=== PATIENT | female | born 2000 | race Caucasian/White ===

== ENCOUNTER → 2019-04-12 16:53 | Outpatient (CLI) | payer OTHER, SELFPAY ==
[2019-04-12 17:53] LABS: Add Manual Diff / Slide Review NO; Basophils Absolute Auto 0 /uL (0-100); Basophils Percent Auto 0.5 % (0-2); Eosinophils Absolute Auto 200 /uL (0-450); Eosinophils Percent Auto 3.2 % (2-4); Hematocrit 39.4 % (36-46); Hemoglobin 13.5 g/dL (12.0-16.0); Lymphocytes Absolute Auto 2400 /uL (1100-4500); Lymphocytes Percent Auto 39.3 % (25-40); Mean Corpuscular HGB Conc 34.2 % (30-36); Mean Corpuscular Hemoglobin 28.6 PG (26-34); Mean Corpuscular Volume 83.8 fL (80-100); Monocytes Absolute Auto 400 /uL (0-900); Monocytes Percent Auto 6.7 % (3-14); Neutrophils Absolute Auto 3100 /uL (1500-7000); Neutrophils Percent Auto 50.3 % (50-75); Platelet Count 300 X10^3/uL (150-400); Red Blood Cell Count 4.71 X10^6/uL (4.0-5.2); Red Cell Distribution Width 13.1 % (11.6-14.8); White Blood Cell Count 6.1 X10^3/uL (4.5-11.0)
[2019-04-12 18:17] LABS: Free T3, Triiodothyronine Free 4.16 pg/mL (2.77-5.27)
[2019-04-12 18:30] LABS: Thyroid Stimulating Hormone 1.25 uIU/mL (0.47-4.68)
== END ==
PROVIDERS: Family Provider Family Medicine; PCP Family Medicine; Visit Provider Family Medicine
DX: F41.9 Anxiety disorder, unspecified (principal); N92.0 Excessive and frequent menstruation with regular cycle
CPT/HCPCS: 36415; 84439; 84443; 84481; 85025

== ENCOUNTER → 2019-08-21 11:10 | Outpatient (CLI) | payer OTHER, SELFPAY | PROVIDERS: Family Provider Family Medicine; PCP Family Medicine; Visit Provider Physician Assistant | DX: N89.8 Other specified noninflammatory disorders of vagina (principal) | CPT/HCPCS: 87210 ==

== ENCOUNTER 2020-03-02 04:57 | Observation (INO) | payer OTHER, SELFPAY ==
[2020-03-02] VITALS (24 sets, daily range): BP systolic 77–128; BP diastolic 37–78; PULSE 97–123; RESP 13–20; TEMP 36.1–37.2; O2SAT 87–100; BMI 23.3
--- NOTE | 2020-03-02 | PATH_ITS ---
[facility] Accession Number: [id number] . 01 Material submitted: . appendix - APPENDIX . 01 Clinical history: . FEVER/ABD PAIN . 02 Diagnosis: Appendix, Appendectomy: Active periappendicitis. Negative for dysplasia and malignancy. [facility] 03/06/2020 1526 Local . 02 Electronically signed: . Yoana Horton MD, Pathologist NPI- [id number] . 01 Gross description: . Received in formalin, labeled appendix, and consists of a 5.2 cm in length by 0.6 cm in diameter vermiform appendix with minimal attached mesoappendix. The serosa is jacobson-pink and smooth. Sectioning reveals a jacobson mucosa and a lumen measuring 0.2 cm in diameter. No perforation sites are identified. The specimen is entirely submitted in cassettes A1-A4. ([id number]) /MRV 03/05/2020 1031 Local . 02 Pathologist provided ICD-10: K36 . 02 CPT . 008745 Performed at: 01 [facility] [address] [id number] MD Jean-Claude Pradhan MD Phone: [phone] Performed at: 02 [facility] [address] [place], [place] [id number] MD Yoana Horton MD Phone: [phone]
[2020-03-02 05:24] LABS: Add Manual Diff / Slide Review NO; Basophils Absolute Auto 100 /uL (0-100); Basophils Percent Auto 0.5 % (0-2); Eosinophils Absolute Auto 0 /uL (0-450); Eosinophils Percent Auto 0.1 % (2-4); Hematocrit 39.2 % (36-46); Hemoglobin 13.2 g/dL (12.0-16.0); Lymphocytes Absolute Auto 1700 /uL (1100-4500); Lymphocytes Percent Auto 8.9 % (25-40); Mean Corpuscular HGB Conc 33.7 % (30-36); Mean Corpuscular Hemoglobin 28.1 PG (26-34); Mean Corpuscular Volume 83.4 fL (80-100); Monocytes Absolute Auto 900 /uL (0-900); Monocytes Percent Auto 4.7 % (3-14); Neutrophils Absolute Auto 16500 /uL (1500-7000); Neutrophils Percent Auto 85.8 % (50-75); Platelet Count 370 X10^3/uL (150-400); Red Cell Distribution Width 13.4 % (11.6-14.8); White Blood Cell Count 19.2 X10^3/uL (4.5-11.0)
--- NOTE | 2020-03-02 05:29 | ED_ITS ---
HPI - Abdominal Pain <Freddy Wong MD - Last Filed: 03/02/20 18:06> General Chief Complaint: Abdominal Pain Stated Complaint: fever/abd pain Time Seen by Provider: 03/02/20 05:20 Source: patient and family Mode of arrival: Ambulatory Limitations: no limitations History of Present Illness HPI narrative: Patient here with . Complaints slow onset 1:00 a.m. this morning with infraumbilical abdominal pain that is radiating right lower quadrant. Does not radiate to the back. No urinary complaints. Much more painful with movement. Has subjective fever. Nausea but no vomiting. No diarrhea. LMP starting 2 days ago MD complaint: abdominal pain Related Data Previous Rx's Medication Instructions Recorded norethindrone acetate 1.5 1 tab PO QDAY #105 tab 08/25/18 mg-ethinyl estradiol 30 mcg tablet escitalopram oxalate 10 mg tablet 10 mg PO DAILY #90 tab 10/31/19 docusate sodium 100 mg PO BID #20 cap 03/02/20 oxycodone 5 mg PO Q4-6H PRN #30 tab 03/02/20 Allergies Allergy/AdvReac Type Severity Reaction Status Date / Time cat dander [CAT DANDER] Allergy Intermediate eyes Verified 03/02/20 10:03 luiz Review of Systems <Freddy Wong MD - Last Filed: 03/02/20 18:06> Review of Systems Narrative: GENERAL: Denies chills, fatigue, malaise, fever, sweats. HEENT: Denies sinus pain, ear pain, sore throat, difficulty swallowing, dizziness. RESPIRATORY: Denies dyspnea, cough, wheezing, hemoptysis, sputum. CARDIOVASCULAR: Denies chest pain, palpitations, orthopnea, edema, GASTROINTESTINAL: Complains nausea, denies vomiting, complains abdominal pain, denies diarrhea, constipation, melena. : Denies dysuria, frequency, incontinence, hematuria, urinary retention. MUSCULOSKELETAL: denies weakness, joint pain, or bony pain SKIN: Denies rash, skin lesions NEUROLOGIC: Denies weakness, headache, numbness, change in speech, confusion, seizures, incoordination. PSYCHIATRIC: No concerning psychosocial issues. ROS Unobtainable: All systems reviewed & are unremarkable except as noted in HPI and below Patient History <Freddy Wong MD - Last Filed: 03/02/20 18:06> Medical History (Updated 03/02/20 @ 13:41 by Meenakshi Gore DO) Anxiety (Acute) Bacterial vaginosis (Acute) Family history of alcoholism in father (Acute) Ruptured cyst of left ovary (Acute ~03/02/20) Surgical History (Updated 03/02/20 @ 13:41 by Meenakshi Gore DO) Status post appendectomy (Inactive ~03/02/20) Family History Brother Asthma Grandfather Chronic mental illness History of depression Diabetes mellitus Sister Asthma Social History household members: spouse Smoking Status: Never smoker Smoking Status: Never smoker alcohol intake frequency: a few times a month Substance Use Type: does not use Exam <Freddy Wong MD - Last Filed: 03/02/20 18:06> Narrative Exam Narrative: GENERAL: patient appears stated age. Well-nourished, well-deve loped patient, in no distress, not toxic HEAD: Atraumatic. Normocephalic. EYES: Pupils equal round and reactive. Extraocular motions intact. No scleral icterus. No injection or drainage. ENT: Nose without bleeding, purulent drainage. Throat without erythema, tonsillar hypertrophy or exudate. Airway patent. NECK: Trachea midline. Non tender CARDIOVASCULAR: Regular rate and rhythm without murmurs, gallops, or rubs. RESPIRATORY: Clear to auscultation. Breath sounds equal bilaterally. No wheezes, rales, or rhonchi. GASTROINTESTINAL: Abdomen soft, tender to touch right lower quadrant/McBurney point. Pain with movement, nondistended. EXTREMITIES: No edema or joint tenderness. BACK: Nontender without deformity or crepitance. No flank tenderness. NEURO: AOx4. SKIN: No rash or erythema of visible areas PSYCH: Not anxious, is cooperative Initial Vital Signs Initial Vital Signs: Vital Signs Temperature 98.8 F 03/02/20 05:20 Pulse Rate 111 H 03/02/20 05:20 Respiratory Rate 20 03/02/20 05:20 Blood Pressure 128/75 03/02/20 05:20 Pulse Oximetry 100 03/02/20 05:20 <Werner Sal DO - Last Filed: 03/02/20 13:31> Initial Vital Signs Initial Vital Signs: Vital Signs Temperature 98.8 F 03/02/20 05:20 Pulse Rate 111 H 03/02/20 05:20 Respiratory Rate 20 03/02/20 05:20 Blood Pressure 128/75 03/02/20 05:20 Pulse Oximetry 100 03/02/20 05:20 Course <Freddy Wong MD - Last Filed: 03/02/20 18:06> Course Course Narrative: 0700 s/o dr sal, await for final ct results and reassess for pain ..could be early appendicitis. Orders Ordered: ED Orders 03/02/20 09:21 COVID19 -ED/INPAT/OR/L&D Stat Discontinued Medications Bupivacaine HCl/Epinephrine Bitart (Sensorcaine 0.25% W/ Epi (Pf)) 30 ml INJ NOW ONE Stop: 03/02/20 10:53 Last Admin: 03/02/20 10:52 Dose: 30 ml Documented by: MARISEL Fentanyl (Sublimaze) 0 mcg IV Q5M PRN PRN Reason: Pain, Moderate (4-6) Hydromorphone HCl (Dilaudid) 0 mg IV Q5M PRN PRN Reason: Pain, Severe (7-10) Sodium Chloride (Normal Saline 0.9%) 1,000 mls @ 1,000 mls/hr IV BOLUS ONE Stop: 03/02/20 06:27 Last Infusion: 03/02/20 07:44 Dose: 0 mls/hr Documented by: Admin: 03/02/20 05:34 Dose: 1,000 mls/hr Documented by: ALEKSANDRA Piperacillin/Tazobactam/Dextrose (Zosyn) 3.375 gm in 50 mls @ 100 mls/hr IV NOW ONE Stop: 03/02/20 09:20 Last Infusion: 03/02/20 09:52 Dose: 0 mls/hr Documented by: Admin: 03/02/20 09:17 Dose: 100 mls/hr Documented by: ALTON Sodium Chloride (Normal Saline 0.9%) 1,000 mls @ 100 mls/hr IV CONT NATALI Lactated Ringer's (Lactated Ringers) 1,000 mls @ 42 mls/hr IV CONT NATALI Last Infusion: 03/02/20 12:44 Dose: 0 mls/hr Documented by: Admin: 03/02/20 11:49 Dose: 42 mls/hr Documented by: Infusion: 03/02/20 11:49 Dose: 42 mls/hr Documented by: Admin: 03/02/20 10:59 Dose: 42 mls/hr Documented by: Infusion: 03/02/20 10:59 Dose: 42 mls/hr Documented by: Admin: 03/02/20 10:16 Dose: 42 mls/hr Documented by: MARKUS Lactated Ringer's (Lactated Ringers) 1,000 mls @ 42 mls/hr IV CONT NATALI Lorazepam (Ativan) 0.5 mg IV NOW PRN PRN Reason: Anxiety Metoclopramide HCl (Reglan) 10 mg IV NOW PRN PRN Reason: Nausea And Vomiting Morphine Sulfate (Morphine) 4 mg IV NOW ONE Stop: 03/02/20 05:42 Last Admin: 03/02/20 05:46 Dose: 4 mg Documented by: ALEKSANDRA Morphine Sulfate (Morphine) 4 mg IV NOW ONE Stop: 03/02/20 08:49 Last Admin: 03/02/20 09:17 Dose: 4 mg Documented by: ALTON Morphine Sulfate (Morphine) 4 mg IV Q4HR PRN PRN Reason: Pain, Severe (7-10) Ondansetron HCl (Zofran) 4 mg IV NOW ONE Stop: 03/02/20 05:29 Last Admin: 03/02/20 05:34 Dose: 4 mg Documented by: ALEKSANDRA Ondansetron HCl (Zofran) 4 mg IV Q4HR PRN PRN Reason: Nausea And Vomiting Ondansetron HCl (Zofran) 4 mg IV NOW PRN PRN Reason: Nausea And Vomiting Oxycodone/Acetaminophen (Percocet 5/325) 1 tab PO PACUNOW PRN PRN Reason: Mild or Moderate Pain Consultations Consultation #1: Spoke with general surgeon dr segura, she reviewed the CT scan. Reviewed white cell count with her as well. At this time, no surgery no admission. Patient can be discharged home for appendicitis precautions and return if worsening. Time: 06:44 Vital Signs Vital signs: Vital Signs - 8 hr 03/02/20 05:36 03/02/20 06:06 03/02/20 06:12 Pulse Rate 113 H 105 H 111 H Blood Pressure 116/69 Pulse Oximetry 99 99 99 03/02/20 06:30 03/02/20 06:47 03/02/20 07:00 Pulse Rate 104 H 108 H 108 H Blood Pressure 104/66 118/76 111/73 Pulse Oximetry 99 100 100 03/02/20 07:30 03/02/20 08:00 03/02/20 08:30 Pulse Rate 106 H 105 H 107 H Blood Pressure Pulse Oximetry 100 97 97 03/02/20 09:00 03/02/20 09:18 03/02/20 09:30 Pulse Rate 107 H 112 H 107 H Blood Pressure 113/72 110/65 Pulse Oximetry 99 100 98 <Werner Sal, DO - Last Filed: 03/02/20 13:31> Course Course Narrative: patient received in signout from Dr. Wong. I have perfo rmed an independent history and physical and agree with his assessment. CT has been officially read by our radiologists and though imaging isn't very convincing her story and exam are classic for early appendicitis. Dr. Segura has seen patient at the bedside and will take to the OR for lap appy. Orders Ordered: ED Orders 03/02/20 09:21 COVID19 -ED/INPAT/OR/L&D Stat Discontinued Medications Bupivacaine HCl/Epinephrine Bitart (Sensorcaine 0.25% W/ Epi (Pf)) 30 ml INJ NOW ONE Stop: 03/02/20 10:53 Last Admin: 03/02/20 10:52 Dose: 30 ml Documented by: MARISEL Fentanyl (Sublimaze) 0 mcg IV Q5M PRN PRN Reason: Pain, Moderate (4-6) Hydromorphone HCl (Dilaudid) 0 mg IV Q5M PRN PRN Reason: Pain, Severe (7-10) Sodium Chloride (Normal Saline 0.9%) 1,000 mls @ 1,000 mls/hr IV BOLUS ONE Stop: 03/02/20 06:27 Last Infusion: 03/02/20 07:44 Dose: 0 mls/hr Documented by: Admin: 03/02/20 05:34 Dose: 1,000 mls/hr Documented by: ALEKSANDRA Piperacillin/Tazobactam/Dextrose (Zosyn) 3.375 gm in 50 mls @ 100 mls/hr IV NOW ONE Stop: 03/02/20 09:20 Last Infusion: 03/02/20 09:52 Dose: 0 mls/hr Documented by: Admin: 03/02/20 09:17 Dose: 100 mls/hr Documented by: ALTON Sodium Chloride (Normal Saline 0.9%) 1,000 mls @ 100 mls/hr IV CONT NATALI Lactated Ringer's (Lactated Ringers) 1,000 mls @ 42 mls/hr IV CONT NATALI Last Infusion: 03/02/20 12:44 Dose: 0 mls/hr Documented by: Admin: 03/02/20 11:49 Dose: 42 mls/hr Documented by: Infusion: 03/02/20 11:49 Dose: 42 mls/hr Documented by: Admin: 03/02/20 10:59 Dose: 42 mls/hr Documented by: Infusion: 03/02/20 10:59 Dose: 42 mls/hr Documented by: Admin: 03/02/20 10:16 Dose: 42 mls/hr Documented by: MARKUS Lactated Ringer's (Lactated Ringers) 1,000 mls @ 42 mls/hr IV CONT NATALI Lorazepam (Ativan) 0.5 mg IV NOW PRN PRN Reason: Anxiety Metoclopramide HCl (Reglan) 10 mg IV NOW PRN PRN Reason: Nausea And Vomiting Morphine Sulfate (Morphine) 4 mg IV NOW ONE Stop: 03/02/20 05:42 Last Admin: 03/02/20 05:46 Dose: 4 mg Documented by: ALEKSANDRA Morphine Sulfate (Morphine) 4 mg IV NOW ONE Stop: 03/02/20 08:49 Last Admin: 03/02/20 09:17 Dose: 4 mg Documented by: ALTON Morphine Sulfate (Morphine) 4 mg IV Q4HR PRN PRN Reason: Pain, Severe (7-10) Ondansetron HCl (Zofran) 4 mg IV NOW ONE Stop: 03/02/20 05:29 Last Admin: 03/02/20 05:34 Dose: 4 mg Documented by: AUPDIKE Ondansetron HCl (Zofran) 4 mg IV Q4HR PRN PRN Reason: Nausea And Vomiting Ondansetron HCl (Zofran) 4 mg IV NOW PRN PRN Reason: Nausea And Vomiting Oxycodone/Acetaminophen (Percocet 5/325) 1 tab PO PACUNOW PRN PRN Reason: Mild or Moderate Pain Vital Signs Vital signs: Vital Signs - 8 hr 03/02/20 05:36 03/02/20 06:06 03/02/20 06:12 Pulse Rate 113 H 105 H 111 H Blood Pressure 116/69 Pulse Oximetry 99 99 99 03/02/20 06:30 03/02/20 06:47 03/02/20 07:00 Pulse Rate 104 H 108 H 108 H Blood Pressure 104/66 118/76 111/73 Pulse Oximetry 99 100 100 03/02/20 07:30 03/02/20 08:00 03/02/20 08:30 Pulse Rate 106 H 105 H 107 H Blood Pressure Pulse Oximetry 100 97 97 03/02/20 09:00 03/02/20 09:18 03/02/20 09:30 Pulse Rate 107 H 112 H 107 H Blood Pressure 113/72 110/65 Pulse Oximetry 99 100 98 MDM - Abdominal Pain <Freddy Wong MD - Last Filed: 03/02/20 18:06> Differential Diagnosis Differential diagnosis: Likely abdominal pain, acute appendicitis, calculus of kidney and diverticulitis Lab Data Result diagrams: 03/02/20 05:15 03/02/20 05:15 Labs: Lab Results 03/02/20 03/02/20 03/02/20 Range/Units 05:15 05:15 05:15 WBC 19.2 H (4.5-11.0) X10^3/uL RBC 4.70 (4.0-5.2) X10^6/uL Hgb 13.2 (12.0-16.0) g/dL Hct 39.2 (36-46) % MCV 83.4 (80-100) fL MCH 28.1 (26-34) PG MCHC 33.7 (30-36) % RDW 13.4 (11.6-14.8) % Plt Count 370 (150-400) X10^3/uL Neut % (Auto) 85.8 H (50-75) % Lymph % (Auto) 8.9 L (25-40) % Mchenry % (Auto) 4.7 (3-14) % Eos % (Auto) 0.1 L (2-4) % Baso % (Auto) 0.5 (0-2) % Neut # (Auto) 21978 H (8103-7171) /uL Lymph # (Auto) 1700 (5239-9103) /uL Mchenry # (Auto) 900 (0-900) /uL Eos # (Auto) 0 (0-450) /uL Baso # (Auto) 100 (0-100) /uL PT 11.8 (10.1-12.7) SECONDS INR 1.0 (0.9-1.3) APTT 33 (26.4-36.2) SECONDS Sodium 139 (137-145) mmol/L Potassium 3.4 (3.4-5.1) mmol/L Chloride 105 (98-107) mmol/L Carbon Dioxide 26 (22-32) mmol/L BUN 15 (7-17) mg/dL Creatinine 0.62 (0.52-1.04) mg/dL Estimated GFR > 60.0 (>60) mL/min BUN/Creatinine Ratio 24.2 H (6-22) Glucose 104 H (70-100) mg/dL Calcium 9.1 (8.4-10.2) mg/dL Total Bilirubin 0.3 (0.2-1.3) mg/dL AST 20 (14-36) IU/L ALT 13 (<35) IU/L Alkaline Phosphatase 82 (38-126) U/L Total Protein 7.5 (6.3-8.2) g/dL Albumin 4.4 (3.5-5.0) g/dL Globulin 3.1 (1.7-4.1) g/dL Albumin/Globulin Ratio 1.4 (1.0-2.8) Lipase 53 (23-300) U/L Serum , Qual COVID-19 PCR (Negative) 03/02/20 03/02/20 Range/Units 05:15 09:21 WBC (4.5-11.0) X10^3/uL RBC (4.0-5.2) X10^6/uL Hgb (12.0-16.0) g/dL Hct (36-46) % MCV (80-100) fL MCH (26-34) PG MCHC (30-36) % RDW (11.6-14.8) % Plt Count (150-400) X10^3/uL Neut % (Auto) (50-75) % Lymph % (Auto) (25-40) % Mchenry % (Auto) (3-14) % Eos % (Auto) (2-4) % Baso % (Auto) (0-2) % Neut # (Auto) (1297-2463) /uL Lymph # (Auto) (1637-8594) /uL Mchenry # (Auto) (0-900) /uL Eos # (Auto) (0-450) /uL Baso # (Auto) (0-100) /uL PT (10.1-12.7) SECONDS INR (0.9-1.3) APTT (26.4-36.2) SECONDS Sodium (137-145) mmol/L Potassium (3.4-5.1) mmol/L Chloride (98-107) mmol/L Carbon Dioxide (22-32) mmol/L BUN (7-17) mg/dL Creatinine (0.52-1.04) mg/dL Estimated GFR (>60) mL/min BUN/Creatinine Ratio (6-22) Glucose (70-100) mg/dL Calcium (8.4-10.2) mg/dL Total Bilirubin (0.2-1.3) mg/dL AST (14-36) IU/L ALT (<35) IU/L Alkaline Phosphatase (38-126) U/L Total Protein (6.3-8.2) g/dL Albumin (3.5-5.0) g/dL Globulin (1.7-4.1) g/dL Albumin/Globulin Ratio (1.0-2.8) Lipase (23-300) U/L Serum , Qual Cancelled COVID-19 PCR Negative (Negative) Point of care testing: Point of Care Testing Test Results Negative Urine Dip Bedside Urine Glucose Negative Bedside Urine Bilirubin - Negative Bedside Urine Ketone - Negative Urine Specific Spencer 1.025 Bedside Urine Occult Blood - Negative Bedside Urine pH 6.0 Bedside Urine Protein - Negative Bedside Urine Urobilinogen - Negative Bedside Urine Nitrite - Negative Bedside Urine Leukocytes - Negative Esterase <Werner Glendale, DO - Last Filed: 03/02/20 13:31> Lab Data Labs: Lab Results 03/02/20 03/02/20 03/02/20 Range/Units 05:15 05:15 05:15 WBC 19.2 H (4.5-11.0) X10^3/uL RBC 4.70 (4.0-5.2) X10^6/uL Hgb 13.2 (12.0-16.0) g/dL Hct 39.2 (36-46) % MCV 83.4 (80-100) fL MCH 28.1 (26-34) PG MCHC 33.7 (30-36) % RDW 13.4 (11.6-14.8) % Plt Count 370 (150-400) X10^3/uL Neut % (Auto) 85.8 H (50-75) % Lymph % (Auto) 8.9 L (25-40) % Mchenry % (Auto) 4.7 (3-14) % Eos % (Auto) 0.1 L (2-4) % Baso % (Auto) 0.5 (0-2) % Neut # (Auto) 20674 H (9245-4973) /uL Lymph # (Auto) 1700 (8423-5952) /uL Mchenry # (Auto) 900 (0-900) /uL Eos # (Auto) 0 (0-450) /uL Baso # (Auto) 100 (0-100) /uL PT 11.8 (10.1-12.7) SECONDS INR 1.0 (0.9-1.3) APTT 33 (26.4-36.2) SECONDS Sodium 139 (137-145) mmol/L Potassium 3.4 (3.4-5.1) mmol/L Chloride 105 (98-107) mmol/L Carbon Dioxide 26 (22-32) mmol/L BUN 15 (7-17) mg/dL Creatinine 0.62 (0.52-1.04) mg/dL Estimated GFR > 60.0 (>60) mL/min BUN/Creatinine Ratio 24.2 H (6-22) Glucose 104 H (70-100) mg/dL Calcium 9.1 (8.4-10.2) mg/dL Total Bilirubin 0.3 (0.2-1.3) mg/dL AST 20 (14-36) IU/L ALT 13 (<35) IU/L Alkaline Phosphatase 82 (38-126) U/L Total Protein 7.5 (6.3-8.2) g/dL Albumin 4.4 (3.5-5.0) g/dL Globulin 3.1 (1.7-4.1) g/dL Albumin/Globulin Ratio 1.4 (1.0-2.8) Lipase 53 (23-300) U/L Serum , Qual COVID-19 PCR (Negative) 03/02/20 03/02/20 Range/Units 05:15 09:21 WBC (4.5-11.0) X10^3/uL RBC (4.0-5.2) X10^6/uL Hgb (12.0-16.0) g/dL Hct (36-46) % MCV (80-100) fL MCH (26-34) PG MCHC (30-36) % RDW (11.6-14.8) % Plt Count (150-400) X10^3/uL Neut % (Auto) (50-75) % Lymph % (Auto) (25-40) % Mchenry % (Auto) (3-14) % Eos % (Auto) (2-4) % Baso % (Auto) (0-2) % Neut # (Auto) (7768-5549) /uL Lymph # (Auto) (5499-2008) /uL Mchenry # (Auto) (0-900) /uL Eos # (Auto) (0-450) /uL Baso # (Auto) (0-100) /uL PT (10.1-12.7) SECONDS INR (0.9-1.3) APTT (26.4-36.2) SECONDS Sodium (137-145) mmol/L Potassium (3.4-5.1) mmol/L Chloride (98-107) mmol/L Carbon Dioxide (22-32) mmol/L BUN (7-17) mg/dL Creatinine (0.52-1.04) mg/dL Estimated GFR (>60) mL/min BUN/Creatinine Ratio (6-22) Glucose (70-100) mg/dL Calcium (8.4-10.2) mg/dL Total Bilirubin (0.2-1.3) mg/dL AST (14-36) IU/L ALT (<35) IU/L Alkaline Phosphatase (38-126) U/L Total Protein (6.3-8.2) g/dL Albumin (3.5-5.0) g/dL Globulin (1.7-4.1) g/dL Albumin/Globulin Ratio (1.0-2.8) Lipase (23-300) U/L Serum , Qual Cancelled COVID-19 PCR Negative (Negative) Point of care testing: Point of Care Testing Test Results Negative Urine Dip Bedside Urine Glucose Negative Bedside Urine Bilirubin - Negative Bedside Urine Ketone - Negative Urine Specific Spencer 1.025 Bedside Urine Occult Blood - Negative Bedside Urine pH 6.0 Bedside Urine Protein - Negative Bedside Urine Urobilinogen - Negative Bedside Urine Nitrite - Negative Bedside Urine Leukocytes - Negative Esterase Discharge Plan Departure Patient Disposition: Admitted to Surgery Clinical Impression: Acute appendicitis Qualifiers: Acute appendicitis type: with localized peritonitis Appendicitis gangrene presence: without gangrene Appendicitis perforation presence: without perforation Appendicitis abscess presence: without abscess Qualified Code(s): K35.30 - Acute appendicitis with localized peritonitis, without perforation or gangrene Discharge Date/Time: 03/02/20 09:59 Admit Date/Time: 03/02/20 09:31 Admit Provider: Ariane Segura
[2020-03-02 05:31] LABS: Prothrombin Time 11.8 SECONDS (10.1-12.7)
[2020-03-02 05:34] LABS: PTT Partial Thromboplastin Tim 33 SECONDS (26.4-36.2)
[2020-03-02] MEDS: SODIUM CHLORIDE 0.9% 1,000 ML 1000 ML IV (05:34)
[2020-03-02] MEDS: ONDANSETRON 4 MG/2 ML INJ IV (05:34)
[2020-03-02 05:36] LABS: Alanine Aminotransferase 13 IU/L (<35); Albumin 4.4 g/dL (3.5-5.0); Albumin Globulin Ratio 1.4 (1.0-2.8); Alkaline Phosphatase 82 U/L (38-126); Aspartate Aminotransferase 20 IU/L (14-36); BUN Creatinine Ratio 24.2 (6-22); Bilirubin Total 0.3 mg/dL (0.2-1.3); Blood Urea Nitrogen 15 mg/dL (7-17); Calcium 9.1 mg/dL (8.4-10.2); Carbon Dioxide 26 mmol/L (22-32); Chloride 105 mmol/L (98-107); Estimated Glomerular Filt Rate > 60.0 mL/min (>60); Globulin 3.1 g/dL (1.7-4.1); Glucose 104 mg/dL (70-100); HEMOLYSIS < 15 (0-50); Lipase 53 U/L (23-300); Potassium 3.4 mmol/L (3.4-5.1); Sodium 139 mmol/L (137-145); Total Protein 7.5 g/dL (6.3-8.2)
--- NOTE | 2020-03-02 05:41 | DI.CT.S_ITS ---
PROCEDURE: CT ABDOMEN PELVIS W CON INDICATIONS: IV contrast only/right lower quadrant pain TECHNIQUE: After the administration of intravenous contrast, 5 mm thick sections acquired from the diaphragm to the symphysis. 5 mm coronal and sagittal reformats were acquired. For radiation dose reduction, the following was used: automated exposure control, adjustment of mA and/or kV according to patient size. COMPARISON: None. FINDINGS: Image quality: Excellent. ABDOMEN: Lung bases: Lung bases are clear. Heart size is normal. Solid organs: Liver is normal in size and enhancement. Incidental note is made of focal fatty infiltration adjacent to the falciform ligament, which is not regarded to be pathologic. Gallbladder wall is not thickened. Biliary system is non dilated. Pancreas enhances normally. Spleen is normal in size and enhancement. No adrenal nodules. Kidneys demonstrate normal size and enhancement, without hydronephrosis. Peritoneum and bowel: In this patient with this given history, scrutiny is given to the appendix. The appendix is poorly seen, yet is believed to be normal. No significant right lower quadrant inflammatory changes are seen. There is a moderate amount of stool seen within the ascending colon. Bowel loops demonstrate normal wall thickness and caliber. No free air. Nodes and vessels: No retroperitoneal or mesenteric adenopathy by size criteria. Aorta and inferior vena cava are normal in size. Miscellaneous: No ventral hernias. PELVIS: Genitourinary: Bladder wall thickness is normal. A 3.9 cm left ovarian cyst is seen. Within the pelvis, there is a small amount of layering free fluid, which is considered to within physiologic limits. Miscellaneous: No inguinal hernias or adenopathy. Bones: No suspicious bony lesions. No vertebral body compression fractures. IMPRESSION: Appendix poorly seen, yet believed to be normal. Please consider close clinical follow-up and repeat imaging, if clinically appropriate. There is a moderate amount of stool seen within the ascending colon. Please correlate with an underlying history of constipation. 3.9 cm left ovarian cyst, with associated free fluid. This is almost certainly benign in a patient of this age. At clinical discretion, a followup pelvic ultrasound is suggested in 6 weeks to assure resolution/ improvement. Note: No significant discrepancy from the preliminary report. Dictated by: Zachary Ward M.D. on 03/02/2020 at 7:23 Approved by: Zachary Ward M.D. on 03/02/2020 at 7:29
[2020-03-02] MEDS: MORPHINE 4 MG/ML INJ IV ×2 (05:46→09:17)
[2020-03-02] MEDS: PIPERACILLIN-TAZO 3.375 GM/50 ML FROZ.PIGGY IV (09:17)
--- NOTE | 2020-03-02 09:33 | PM.HP.1 ---
History of Present Illness History of Present Illness Date Patient Seen: 03/02/20 Time Patient Seen: 09:33 Chief complaint: fever/abd pain Narrative: This is a 19 yo woman who had acute onset of RLQ pain at 1AM today. She denies any prodrome or preceding symptoms. She came into the ER this morning and was found to have a WBC of 19.[address] scan which showed a left ovarian cyst, fluid in the pelvis, and a normal appendix. Her clinical exam was concerning enough that the ER doctor called me to review her case for possible early appendicitis. 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 She denies any significant family history of gastrointestinal abnormalities. She denies any recent upper respiratory or viral symptoms. She denies tobacco use. She drinks occasional alcohol, denies any other substance use. She takes escitalopram for anxiety. She has had a couple of UTIs in the past which were uncomplicated and treated to resolution with antibiotics as an outpatient. She denies any other medications, medical problems, or surgical history. She last ate around 11:00 p.m. last evening. ROS: denies dysuria, menstrual cramps, history of Respiratory Therapy Technician disorders, she has a chronically inconsistent/poor appetite, which is the same today Thirteen system review is otherwise negative other than as mentioned below and in HPI. PE: GENERAL: Alert, comfortable. Appears stated age. Answers questions promptly and appropriately. Vital signs noted. HENT: Normocephalic, atraumatic. Hearing intact. EYES: Conjunctiva pink, sclera white, no periorbital swelling. CARDIOVASCULAR: Regular rate. No pedal edema. RESPIRATORY: Non-tachypneic, breathing comfortably on room air. GASTROINTESTINAL: Abdomen soft and non-distended, focal tenderness to palpation in the right lower quadrant, with positive Rovsing sign. GENITALURINARY: No flank tenderness. MUSCULOSKELETAL: Equal tone and mass bilaterally. SKIN: Warm, dry, soft, appropriate color for ethnicity. No other lesions, rashes, or wounds. NEURO: Alert and Oriented X 3. No gross sensory deficits, or cognitive issues. PSYCH: Appropriate affect and mood. Patient History Medical History Anxiety (Acute) Bacterial vaginosis (Acute) Family history of alcoholism in father (Acute) Family & Social History Family History Brother Asthma Grandfather Chronic mental illness History of depression Diabetes mellitus Sister Asthma Safety & Behavioral: Feels Safe in Current Yes Environment Tobacco & Substance use: Smoking Status Never smoker alcohol intake frequency a few times a month Substance Use Type does not use Meds Home Medications and Allergies Home Medications Medication Instructions Recorded Confirmed Type triamcinolone acetonide 1 omar TOPICAL BID #45 gm 09/17/16 10/31/19 Rx norethindrone acetate 1.5 1 tab PO QDAY #105 tab 08/25/18 10/31/19 Rx mg-ethinyl estradiol 30 mcg tablet escitalopram oxalate 10 mg tablet 10 mg PO DAILY #90 tab 10/31/19 10/31/19 Rx Allergies Allergy/AdvReac Type Severity Reaction Status Date / Time cat dander [CAT DANDER] Allergy Intermediate eyes Verified 03/02/20 05:20 itchey and sniffley Exam Vital Signs (past 8 hours): - 03/02/20 05:20 03/02/20 05:36 03/02/20 06:06 Temperature 98.8 F Pulse Rate 111 H 113 H 105 H Respiratory Rate 20 Blood Pressure 128/75 Pulse Oximetry 100 99 99 03/02/20 06:12 03/02/20 06:30 03/02/20 06:47 Temperature Pulse Rate 111 H 104 H 108 H Respiratory Rate Blood Pressure 116/69 104/66 118/76 Pulse Oximetry 99 99 100 03/02/20 07:00 03/02/20 07:30 03/02/20 08:00 Temperature Pulse Rate 108 H 106 H 105 H Respiratory Rate Blood Pressure 111/73 Pulse Oximetry 100 100 97 03/02/20 08:30 03/02/20 09:00 03/02/20 09:18 Temperature Pulse Rate 107 H 107 H 112 H Respiratory Rate Blood Pressure 113/72 Pulse Oximetry 97 99 100 Oxygen Delivery Method Room Air Objective Imaging CT scan - abdomen: Radiologist's impression: [address] [address] [address] Scan Report Signed Patient: Lima Hidalgo EMR#: [id number] : 2000Acct:[id number] Age/Sex: 19 / FDate of Service: 03/02/20 Loc: ED Accession Number: [id number] Procedure: CT abdomen pelvis w con Ordering Provider: Freddy Wong MD PROCEDURE: CT ABDOMEN PELVIS W CON INDICATIONS: IV contrast only/right lower quadrant pain TECHNIQUE: After the administration of intravenous contrast, 5 mm thick sections acquired from the diaphragm to the symphysis. 5 mm coronal and sagittal reformats were acquired. For radiation dose reduction, the following was used: automated exposure control, adjustment of mA and/or kV according to patient size. COMPARISON: None. FINDINGS: Image quality: Excellent. ABDOMEN: Lung bases: Lung bases are clear. Heart size is normal. Solid organs: Liver is normal in size and enhancement. Incidental note is made of focal fatty infiltration adjacent to the falciform ligament, which is not regarded to be pathologic. Gallbladder wall is not thickened. Biliary system is non dilated. Pancreas enhances normally. Spleen is normal in size and enhancement. No adrenal nodules. Kidneys demonstrate normal size and enhancement, without hydronephrosis. Peritoneum and bowel: In this patient with this given history, scrutiny is given to the appendix. The appendix is poorly seen, yet is believed to be normal. No significant right lower quadrant inflammatory changes are seen. There is a moderate amount of stool seen within the ascending colon. Bowel loops demonstrate normal wall thickness and caliber. No free air. Nodes and vessels: No retroperitoneal or mesenteric adenopathy by size criteria. Aorta and inferior vena cava are normal in size. Miscellaneous: No ventral hernias. PELVIS: Genitourinary: Bladder wall thickness is normal. A 3.9 cm left ovarian cyst is seen. Within the pelvis, there is a small amount of layering free fluid, which is considered to within physiologic limits. Miscellaneous: No inguinal hernias or adenopathy. Bones: No suspicious bony lesions. No vertebral body compression fractures. IMPRESSION: Appendix poorly seen, yet believed to be normal. Please consider close clinical follow-up and repeat imaging, if clinically appropriate. There is a moderate amount of stool seen within the ascending colon. Please correlate with an underlying history of constipation. 3.9 cm left ovarian cyst, with associated free fluid. This is almost certainly benign in a patient of this age. At clinical discretion, a followup pelvic ultrasound is suggested in 6 weeks to assure resolution/ improvement. Note: No significant discrepancy from the preliminary report. Dictated by: Zachary Ward M.D. on 03/02/2020 at 7:23 Approved by: Zachary Ward M.D. on 03/02/2020 at 7:29 Labs Result Diagrams: 03/02/20 05:15 03/02/20 05:15 Labs: Laboratory Results - last 24 hr 03/02/20 03/02/20 03/02/20 05:15 05:15 05:15 WBC 19.2 H RBC 4.70 Hgb 13.2 Hct 39.2 MCV 83.4 MCH 28.1 MCHC 33.7 RDW 13.4 Plt Count 370 Neut % (Auto) 85.8 H Lymph % (Auto) 8.9 L [place] % (Auto) 4.7 Eos % (Auto) 0.1 L Baso % (Auto) 0.5 Neut # (Auto) 87719 H Lymph # (Auto) 1700 [place] # (Auto) 900 Eos # (Auto) 0 Baso # (Auto) 100 PT 11.8 INR 1.0 APTT 33 Sodium 139 Potassium 3.4 Chloride 105 Carbon Dioxide 26 BUN 15 Creatinine 0.62 Estimated GFR > 60.0 BUN/Creatinine Ratio 24.2 H Glucose 104 H Calcium 9.1 Total Bilirubin 0.3 AST 20 ALT 13 Alkaline Phosphatase 82 Total Protein 7.5 Albumin 4.4 Globulin 3.1 Albumin/Globulin Ratio 1.4 Lipase 53 Serum , Qual 03/02/20 05:15 WBC RBC Hgb Hct MCV MCH MCHC RDW Plt Count Neut % (Auto) Lymph % (Auto) [place] % (Auto) Eos % (Auto) Baso % (Auto) Neut # (Auto) Lymph # (Auto) [place] # (Auto) Eos # (Auto) Baso # (Auto) PT INR APTT Sodium Potassium Chloride Carbon Dioxide BUN Creatinine Estimated GFR BUN/Creatinine Ratio Glucose Calcium Total Bilirubin AST ALT Alkaline Phosphatase Total Protein Albumin Globulin Albumin/Globulin Ratio Lipase Serum , Qual Cancelled Assessment & Plan Assessment and plan (1) Leukocytosis: Status: Acute (2) Right lower quadrant pain: Status: Acute (3) Left ovarian cyst: Status: Acute Assessment & Plan narrative: This is a 19-year-old woman with suspected acute appendicitis, although not conclusively identified on CT scan. I had a long discussion with the patient and her regarding the risks benefits and alternatives to laparoscopic possible open appendectomy. I explained that while this is likely her appendix, but it may be another cause such as gastroenteritis, ovarian cyst, constipation, Meckel diverticulum. I gave them the options of watching and waiting, treating with antibiotics, or going ahead with laparoscopic possible open appendectomy. I did explain the risks including bleeding, infection, damage to nearby structures, need for additional procedures, complications such as injury to the bowel, recurrent bleed, abscess, bowel obstruction, and the potential need for open surgery in any laparoscopic operation. The patient and her are both in favor of going ahead with appendectomy. Plan: NPO, IV fluids, IV Zosyn, proceed to OR for laparoscopic possible open appendectomy COVID-19 COVID-19 status: Result pending Result date/Date tested (Pos, Neg/Pending): 03/02/20 Time Spent With Patient Time with patient: Greater than 35 minutes Quality VTE Deep Vein Thrombosis/Pulmonary Embolism Present on Admission: No
[2020-03-02 09:46] LABS: COVID19 -Nasal RAPID Negative (Negative)
[2020-03-02] MEDS: LACTATED RINGERS 1,000 ML 42 ML IV ×3 (10:16→11:49)
--- NOTE | 2020-03-02 10:40 | SUR.OPER ---
Lithotomy on padded OR bed, head on pillow, right arm secured on padded arm boards at <90 degrees abduction, left arm padded and tucked. Legs secured in padded yellow fins stirrups.
[2020-03-02] MEDS: BUPIVACAINE 0.25% W/ EPI 30 ML VIAL INJ (10:52)
--- NOTE | 2020-03-02 11:47 | P.OP_ITS ---
Operative Date/Time/Diagnoses Date of procedure: 03/02/20 Time of procedure: 11:47 Pre-op diagnosis: Leukocytosis, right lower quadrant pain, suspected acute appendicitis Post-op diagnosis: other (Normal appearing appendix, enlarged left ovary, evidence of ruptured ovarian cyst) Procedure & Clinicians Procedure: Laparoscopic appendectomy, diagnostic laparoscopy Same procedure as scheduled: Yes Indications: This is a 19-year-old woman who had acute onset of right lower quadrant pain around 1:00 a.m. this morning. She came into the ER was found to have a white blood cell count of 19, and a normal appearing appendix on CT scan. Her physical exam was concerning for early acute appendicitis, and so after a long discussion with the patient her the decision was made to go ahead to the operating room for laparoscopic appendectomy. Surgeon: Ariane Segura Click Yes if Unassisted: Yes Anesthesia Type: General Operative Notes Findings: Normal appearing appendix, bloody fluid in the pelvis, old blood adherent to the abdominal wall and pelvic sidewalls, large left ovary, with appearance of recent rupture Closure Type: primary Specimen(s): other (Appendix) Estimated Blood Loss (mL): 1 Procedure in detail: The patient was brought into the operating room and placed supine on the OR table. Sequential compression devices were placed on both legs and turned on. Appropriate perioperative antibiotics were given prior to the start of surgery. General anesthesia was induced the patient was intubated. Rodriguez catheter was placed sterilely in the bladder. The abdomen was prepped and draped in sterile fashion. Surgical time-out was conducted. Local anesthetic was injected under the skin just superior to the umbilicus and a 5 mm vertical incision was made at this site. The umbilical stalk was grasped with a Cass and elevated. A Veress needle was passed through the fascia into proper position. The position was tested with a saline drop test which was appropriate for intra-abdominal Veress needle placement. The abdomen was then insufflated in the usual fashion. Once insufflated to 15 mm Hg the Veress needle was removed and a 5 mm optical trocar was placed under direct vision using a 5 mm 30 degree scope. Once the camera was inside the abdomen I took a look around. There was no injury from port placement. Two additional ports were placed in a similar fashion in the suprapubic position and left lower quadrant. The umbilical port was upsized to a 12 mm port. In the pelvis and right gutter there was a moderate amount of bloody fluid. Some old blood was adherent to the abdominal wall, the pelvic sidewalls, and the anterior surface of the cecum. This was removed with suction, and it easily came off. The bloody fluid was suctioned out of the right gutter and pelvis. The patient was then positioned right side up and in Trendelenburg. The cecum was rotated medially, and the appendix was seen in the retrocecal position trapped within the white line of Toldt. It appeared quite normal. It was grasped and elevated, and the retroperitoneal attachments were taken down with a [place] LigaSure. The mesoappendix was divided with LigaSure. In the appendix was traced all the way to its base where it enters the cecum. The base was sylvain ared, and two 0-PDS endo-loops were placed at the base of the appendix and secured snugly. Distal to the 2 endo-loops, the appendix was then divided using LigaSure. The appendix was then drawn through the 12 mm port and passed off the table for pathology. I took another look around the abdomen and pelvis. I examined both ovaries. The right ovary appeared fairly normal. The left ovary was quite large, and had evidence of a recent rupture. There was some old blood adherent to the surface of the ovary, and the pelvic sidewalls. This was irrigated and suctioned clean. I took another look at the appendectomy site, it was hemostatic and the PDS sutures were well secured. I ran the small bowel from the cecum proximally, and found no evidence of a Meckel's diverticulum. There was good hemostasis, all free fluid and blood were suctioned out. There was no spillage of stool. I used the laparoscopic suture passer and closed the umbilical port site with 0 Vicryl suture through the fascia. Additional local anesthetic was given at the port sites. At this point the insufflation was removed from the abdomen and the port sites were closed with, 3-O Vicryl in the subcutaneous layers, and 4 Monocryl in the skin. Each port site was sealed with Dermabond. Local anesthetic was given at each of the port sites and in the fascia. This concluded the procedure. At this point the needle sponge and instrument counts were correct. The appendix was passed off the table for pathology. The patient was awakened from anesthesia and extubated. The patient was transferred to the postanesthesia care unit in stable condition. Complications: none Post-operative Condition: stable Disposition: PACU
== END 2020-03-02 12:40 | disposition home or self-care (01) ==
LOC: ED 09:16 → AC 09:34
PROVIDERS: Emergency Medicine; Admitting Provider Surgery; Emergency Provider Emergency Medicine; Family Provider Family Medicine; PCP Family Medicine; Referring Provider Emergency Medicine; Visit Provider Surgery
PROC: 0DTJ4ZZ Resection of Appendix, Percutaneous Endoscopic Approach (ICD-10-PCS; CPT 44970; principal; 2020-03-02 10:15)
DX: R10.31 Right lower quadrant pain (principal); D72.829 Elevated white blood cell count, unspecified; F41.9 Anxiety disorder, unspecified; N83.202 Unspecified ovarian cyst, left side; N83.8 Other noninflammatory disorders of ovary, fallopian tube and broad ligament; Z11.59 Encounter for screening for other viral diseases
CPT/HCPCS: 44970; 36415; 74177; 80053; 81003; 81025; 83690; 85025; 85610; 85730; 87635; 96361; 96365; 96375; 96376; 99219; 99284; G0378; J1100; J1885; J2250; J2270; J2405; J2543; J2704; J3010; Q9967

== ENCOUNTER → 2020-04-04 14:03 | Outpatient (CLI) | payer OTHER, SELFPAY ==
[2020-04-05 19:22] LABS: COVID19 Sendout Not Detected (Not Detect)
== END ==
PROVIDERS: Family Provider Family Medicine; PCP Family Medicine; Visit Provider Physician Assistant
DX: Z11.59 Encounter for screening for other viral diseases (principal)
CPT/HCPCS: 87635

== ENCOUNTER 2020-04-07 09:46 | Day surgery (SDC) | payer OTHER, SELFPAY ==
[2020-04-04 07:49] VITALS: BMI 25.4
[2020-04-07] VITALS (8 sets, daily range): BP systolic 98–119; BP diastolic 59–81; PULSE 106–126; RESP 10–16; TEMP 36.4–37.5; O2SAT 96–100; BMI 24.2
[2020-04-07] MEDS: LACTATED RINGERS 1,000 ML 42 ML IV (10:21)
--- NOTE | 2020-04-07 11:06 | PM.HP.1 ---
History of Present Illness History of Present Illness Date Patient Seen: 04/07/20 Time Patient Seen: 11:06 Chief complaint: SDC Narrative: Patient is a 19-year-old 0 who presents for laparoscopic removal of endometrioma/ovarian cyst and possible fulguration of endometriosis in the pelvis. Patient History Medical History (Updated 04/07/20 @ 07:34 by Tri Wallis MD) Anxiety (Acute) Bacterial vaginosis (Acute) Family history of alcoholism in father (Acute) Ruptured cyst of left ovary (Acute ~03/02/20) Surgical History (Updated 03/14/20 @ 18:06 by Ariane Segura MD) Status post appendectomy (Inactive ~03/02/20) Family & Social History Family History Brother Asthma Grandfather Chronic mental illness History of depression Diabetes mellitus Sister Asthma Social History: household members spouse Tobacco & Substance use: Smoking Status Never smoker alcohol intake current alcohol intake frequency a few times a week Substance Use Type does not use Meds Home Medications and Allergies Home Medications Medication Instructions Recorded Confirmed Type norethindrone acetate 1.5 1 tab PO QDAY #105 tab 08/25/18 04/07/20 Rx mg-ethinyl estradiol 30 mcg tablet escitalopram oxalate 10 mg tablet 10 mg PO DAILY #90 tab 10/31/19 04/07/20 Rx Allergies Allergy/AdvReac Type Severity Reaction Status Date / Time cat dander [CAT DANDER] Allergy Intermediate eyes Verified 04/07/20 09:57 itchey and sniffley Exam Vital Signs (past 8 hours): - 04/07/20 10:03 Temperature 99.5 F Pulse Rate 106 H Respiratory Rate 16 Blood Pressure 119/81 Pulse Oximetry 100 Oxygen Delivery Method Room Air Narrative Exam Narrative: HEENT: No thyromegaly, no anterior cervical or supraclavicular lymphadenopathy. Lungs:Clear to auscultation bilaterally, no wheezes. Cardiovascular: Regular rate and rhythm, no murmurs, rubs, or gallops. Abdomen: Well-healed laparoscopy scars. No hepatosplenomegaly. No masses palpable. External genitalia: Normal Vagina: Normal Cervix: Normal. Nulliparous Bimanual exam: 6 Week size uterus. Mobile. Rectal: No masses. Assessment & Plan Assessment & Plan narrative: Assessment: 19-year-old 0 with ovarian endometrioma/ovarian cysts bilaterally Endometriosis seen in the pelvis during appendectomy surgery Plan: Laparoscopic removal of endometrioma/ovarian cyst Possible fulguration of endometriosis The risks, benefits, and alternatives to the procedure were explained to the patient. The risks including bleeding, infection, injury to the bowel, bladder, or ureters. She understands these risks and agrees to proceed. A full par Q was held and consent form was signed. COVID-19 COVID-19 status: Negative Result date/Date tested (Pos, Neg/Pending): 04/04/20 Time Spent With Patient Time with patient: less than 15 minutes
--- NOTE | 2020-04-07 11:08 | PM.PREOP ---
Pre-operative Note COVID-19 COVID-19 status: Negative Result date/Date tested (Pos, Neg/Pending): 04/04/20 Interval Note History & Physical reviewed/Exam performed by Physician: Yes Changes to H&P: No H&P completed within 30 days and has changed as indicated here:: 04/07/20
--- NOTE | 2020-04-07 11:45 | SUR.OPER ---
Lithotomy on padded OR bed, head on pillow, arms secured on padded arm boards at <90 degrees abduction. Legs secured in padded yellow fins stirrups.
[2020-04-07] MEDS: LACTATED RINGERS 1,000 ML 100 ML IV (12:00)
[2020-04-07] MEDS: BUPIVACAINE 0.5% W/ EPI (PF) 30 ML VIAL INJ (12:01)
[2020-04-07] MEDS: METHYLENE BLUE 50 MG/10 ML VIAL 10 MG IV (12:12)
[2020-04-07] MEDS: TRIAMCINOLONE 40 MG/ML VIAL IM ×2 (12:13→12:21)
--- NOTE | 2020-04-07 12:43 | PM.GYNOP.1 ---
Operative Date/Time/Diagnoses Date of procedure: 04/07/20 Time of procedure: 12:43 Pre-op diagnosis: Endometrioma Ovarian cyst Endometriosis Post-op diagnosis: same Procedure & Clinicians Procedure: Procedures Operation Date: 04/07/20 11:15 Actual Procedures Side Surgeon p Laparoscopic Removal bilateral ovarian cyst aspiration ,Fulguration Endometriosis Tri Wallis MD Indications: Left ovarian endometrioma Right ovarian cyst Pelvic pain Endometriosis found at the time of appendectomy Surgeon: Tri Wallis Anesthesia Type: General Operative Notes Findings: Six week size anteverted uterus Normal tubes bilaterally Normal liver and gallbladder Appendix previously removed Left ovarian endometrioma measuring 3 cm x 3 cm Right ovarian cyst measuring 2 cm x 2 cm Endometriosis of bilateral uterosacral ligaments, posterior cul-de-sac, posterior uterus, bilateral ovaries Closure Type: primary Specimen(s): none Estimated blood loss (mL): 5 Blood products transfused: none Procedure in detail: After informed consent was obtained, the patient was taken to the operating room where she was placed in the dorsal supine position. After adequate general endotracheal anesthesia was achieved, she was placed in the dorsal lithotomy position, and prepped and draped in the usual sterile fashion. A time-out was performed. A bivalve speculum was placed into the vagina and the anterior lip of the cervix grasped with a single-tooth tenaculum. An attempt was made to dilate the cervical os for the Zumi uterine manipulator. Was unable to dilate past # 5 Hegar dilator. The green plastic gradual dilator was used. An HSG catheter was placed into the uterus and the balloon inflated to 3 cc. The single-tooth tenaculum was removed from the anterior lip of the cervix. The bivalve speculum was removed from the vagina. Attention was turned to the abdomen where 6 cc of 0.5% Marcaine with epinephrine were injected in the umbilical fold. The previous incision that had formed a keloid was excised in an elliptical fashion. The Veress needle was placed into the peritoneal cavity, and its placement confirmed with aspiration and drop test. The abdominal cavity was insufflated with 3.5 L of CO2. The Veress needle was removed, and a 5 mm trocar was placed without difficulty. A 2nd incision was made just to the left of the umbilicus through the previous laparoscopy incision. This incision was also excised due to a keloid. A 5 mm trocar was placed under direct visualization. A 3rd incision was made after cord% Marcaine with epinephrine was injected under the right lateral incision. This incision was also excised in elliptical fashion due to a keloid. A 3rd 5 mm trocars placed under direct visualization. The tubes and ovaries were identified with the findings noted above. A needle was placed into the left ovarian cyst which revealed approximately 20 cc of ?chocolate syrup?. The ovary was grasped and an incision was made above the cyst. The cyst wall was excised using the Endo Louis. The edges were cauterized for hemostasis. On the right ovary there was a simple ovarian cyst this was also aspirated. The cyst wall was grasped and it was excised using the Endo Louis. Approximately 35 spots of endometriosis on the ovaries, uterus sacral ligaments, posterior uterus, posterior cul-de-sac, and ovarian fossas were fulgurated using the spoon cautery. A dilute solution of methylene blue was placed through the HSG catheter. Both tubes had immediate spill into the pelvis. The pelvis was copiously irrigated with warm normal saline. The instruments were removed from the abdomen. The CO2 was allowed to escape. The 4th prior laparoscopy incision was excised in an elliptical fashion. All of the incisions were closed in the subcutaneous layer using 3 0 Vicryl with simple interrupted sutures. 4-0 Biosyn was used to close all of the incisions in a subcuticular fashion. A solution of 1 mg of Kenalog in 10 cc of saline was injected under each of the incisions, approximately 1 cc, prior to dressings. The incisions were covered with Steri-Strips, 2 x 2, and op sites. The HSG catheter was removed from the uterus. Sponge, lap, and instrument counts were correct x2. The patient tolerated the procedure well, and was taken to PACU in stable condition. Complications: none Post-operative Condition: stable Disposition: PACU Plan for aftercare: Home after recovery
[2020-04-07] MEDS: OXYCODONE IR 5 MG TABLET PO (13:11)
[2020-04-07] MEDS: ONDANSETRON 4 MG/2 ML INJ IV (13:11)
--- NOTE | 2020-04-07 14:05 | SUR.PHASEII ---
called, arrived, d/c written instructions discussed both voiced an understanding. Dressing to umbilicus and below umbilicus changed under streril technique as they were saturated with serosanguineous drainage. They have remained c/d/i. Given pudding and juice, awaiting pt to void.
--- NOTE | 2020-04-07 14:28 | SUR.PHASEII ---
Up to BR, steady when up, voided, dressed and left unit in stable condition.
== END 2020-04-07 14:20 | disposition home or self-care (01) ==
PROVIDERS: Family Provider Family Medicine; PCP Family Medicine; Referring Provider Obstetrics & Gynecology; Visit Provider Obstetrics & Gynecology
PROC: 0U5B4ZZ Destruction of Endometrium, Percutaneous Endoscopic Approach (ICD-10-PCS; CPT 58662; principal; 2020-04-07 11:15)
DX: N80.1 Endometriosis of ovary (principal); F41.9 Anxiety disorder, unspecified; N80.3 Endometriosis of pelvic peritoneum; N80.0 Endometriosis of uterus; N83.201 Unspecified ovarian cyst, right side
CPT/HCPCS: 58662; J1100; J1885; J2405; J2704; J3010; Q9968

== ENCOUNTER 2020-04-07 23:19 | Emergency (ER) | payer OTHER, SELFPAY ==
[2020-04-07 23:26] VITALS: BP 119/81; PULSE 109; RESP 16; TEMP 36.7; O2SAT 98
--- NOTE | 2020-04-07 23:51 | ED.EXTPRO ---
HPI - Extremity Problem General Chief complaint: Extremity Problem,Nontraumatic Stated complaint: Severs shoulder pain after surgery this morning Time Seen by Provider: 04/07/20 23:51 Source: patient Mode of arrival: Wheelchair Limitations: no limitations History of Present Illness HPI Narrative: The patient is here with complaints of right anterior shoulder pain. She underwent laparoscopy earlier today due to endometriosis. She was discharged home on Percocet. She is not complaining of any significant abdominal pain. She developed right anterior shoulder pain after discharge from the hospital. There is no obvious trauma to the right shoulder. She has no numbness or weakness in the right arm. She is right-hand dominant. She has no associated chest pain, cough or dyspnea. She denies hemoptysis. She denies recent illness. Related Data Previous Rx's Medication Instructions Recorded norethindrone acetate 1.5 1 tab PO QDAY #105 tab 08/25/18 mg-ethinyl estradiol 30 mcg tablet escitalopram oxalate 10 mg tablet 10 mg PO DAILY #90 tab 10/31/19 oxycodone-acetaminophen [Percocet] 1 tab PO Q4-6H PRN #20 tab 04/07/20 Allergies Allergy/AdvReac Type Severity Reaction Status Date / Time cat dander [CAT DANDER] Allergy Intermediate eyes Verified 04/07/20 09:57 luiz Review of Systems Review of Systems ROS Unobtainable: All systems reviewed & are unremarkable except as noted in HPI and below Constitutional Constitutional: Denies chills, Denies fever(s) and Denies headache(s) ENT Ears, Nose, Mouth, and Throat: Denies headache(s) and Denies sore throat Cardiovascular Cardiovascular: Denies chest pain and Denies dyspnea Respiratory Respiratory: Denies cough and Denies dyspnea Gastrointestinal Comments: Postop abdominal pain, not severe. Musculoskeletal Comments: Right anterior shoulder pain is explaining HPI. Integumentary/Breasts Skin/Breast: Denies pruritus, Denies erythema, Denies rash and Denies wounds Neurologic Neurologic: Denies headache(s) Comments: No right arm numbness or weakness Patient History Medical History Anxiety (Acute) Bacterial vaginosis (Acute) Endometriosis (Acute) Family history of alcoholism in father (Acute) Ruptured cyst of left ovary (Acute ~03/02/20) Surgical History H/O laparoscopy (Acute) Status post appendectomy (Inactive ~03/02/20) Family History Brother Asthma Grandfather Chronic mental illness History of depression Diabetes mellitus Sister Asthma Social History household members: spouse Smoking Status: Never smoker alcohol intake: current Smoking Status: Never smoker alcohol intake frequency: a few times a week Substance Use Type: does not use Exam Initial Vital Signs Initial Vital Signs: Vital Signs Temperature 98.1 F 04/07/20 23:26 Pulse Rate 109 H 04/07/20 23:26 Respiratory Rate 16 04/07/20 23:26 Blood Pressure 119/81 04/07/20 23:26 Pulse Oximetry 98 04/07/20 23:26 Const General: cooperative and well developed Nutritional Appearance: well nourished [facility] Head: normocephalic and atraumatic Neck Other: Nontender. Chest Other: Tenderness in the right pectoralis major muscle. Resp Effort & Inspection: normal respiratory effort and able to speak in complete sentences Auscultation: clear to auscultation bilaterally Cardio Rate: regular rate Rhythm: regular rhythm Heart Sounds: S1 normal, S2 normal, no click, no gallops, no murmurs and no rubs Pulses: normal peripheral pulses GI Other: Postoperative changes from the recent surgery. No distension. Normal bowel sounds. Anticipated amount of postop pain. Skin General: no rashes or lesions noted Neuro General: patient alert, patient oriented x3, gait normal and no focal motor deficits Extrem Other: Right anterior shoulder pain. Decreased range of motion due to pain. No evidence of dislocation or obvious deformity. No distal weakness or numbness. The right radial pulse is normal. Range of motion is limited to the right shoulder only due to the pain. The right arm is otherwise normal. Course Course Course Narrative: The patient is much improved after receiving the Dilaudid and Toradol injections. Her right shoulder has near normal range of motion. The right shoulder x-ray is normal. Orders Ordered: ED Orders 04/07/20 23:59 XR shoulder RT min 2V Stat Discontinued Medications Hydromorphone HCl (Dilaudid) 1 mg IM NOW ONE Stop: 04/07/20 23:59 Last Admin: 04/08/20 00:06 Dose: 1 mg Documented by: CHAR Ketorolac Tromethamine (Toradol) 60 mg IM NOW ONE Stop: 04/07/20 23:59 Last Admin: 04/08/20 00:04 Dose: 60 mg Documented by: CHAR Vital Signs Vital signs: Vital Signs - 8 hr 04/07/20 23:26 04/08/20 00:17 04/08/20 00:30 Temperature 98.1 F Pulse Rate 109 H 108 H 104 H Respiratory Rate 16 Blood Pressure 119/81 Pulse Oximetry 98 96 96 04/08/20 00:38 04/08/20 01:00 04/08/20 01:30 Temperature Pulse Rate 106 H 100 H 100 H Respiratory Rate Blood Pressure 117/74 107/73 104/64 Pulse Oximetry 96 97 95 MDM - Extremity (Nontraumatic) Imaging Data Right shoulder x-ray:: My Impression: Normal Discharge Plan Departure Patient Disposition: Home Clinical Impression: Muscle strain of right shoulder Qualifiers: Encounter type: initial encounter Qualified Code(s): S46.911A - Strain of unspecified muscle, fascia and tendon at shoulder and upper arm level, right arm, initial encounter Instructions: DI for Shoulder Pain Activity Restrictions/Additional Instructions: Continue taking Percocet every 4 hours as needed for abdominal pain. Advil 2 tablets every 6 hours as needed for shoulder pain. Use your shoulder as much as possible. Recheck with your doctor in 2 weeks if not improved. Prescriptions: No Action Loestrin 1.5/30 (21) 1.5-30 mg-mcg tablet 1 tab PO QDAY Qty: 105 RF: 11 escitalopram oxalate 10 mg tablet 10 mg PO DAILY Qty: 90 RF: 3 oxycodone-acetaminophen [Percocet] 5-325 mg tablet 1 tab PO Q4-6H PRN (Reason: pain) Qty: 20 RF: 0 Referrals: Meenakshi Gore DO [Primary Care Provider] -
--- NOTE | 2020-04-07 23:59 | DI.RAD.S_ITS ---
PROCEDURE: XR SHOULDER RT MIN 2V INDICATIONS: Pain in anterior right shoulder TECHNIQUE: 3 views of the shoulder were acquired. COMPARISON: None. FINDINGS: Bones: No fractures or dislocations. No suspicious bony lesions. Visualized ribs appear intact. Soft tissues: No suspicious soft tissue calcifications. IMPRESSION: No trauma found. Dictated by: Jefry Hartman M.D. on 04/08/2020 at 8:13 Approved by: Jefry Hartman M.D. on 04/08/2020 at 8:14
[2020-04-08] MEDS: KETOROLAC 60 MG/2 ML VIAL IM (00:04)
[2020-04-08] MEDS: HYDROMORPHONE 1 MG INJ IM (00:06)
[2020-04-08 00:17] VITALS: PULSE 108; O2SAT 96
[2020-04-08 00:30] VITALS: PULSE 104; O2SAT 96
[2020-04-08 00:38] VITALS: BP 117/74; PULSE 106; O2SAT 96
[2020-04-08 01:00] VITALS: BP 107/73; PULSE 100; O2SAT 97
[2020-04-08 01:30] VITALS: BP 104/64; PULSE 100; O2SAT 95
== END 2020-04-08 01:54 | disposition home or self-care (01) ==
PROVIDERS: Emergency Provider Emergency Medicine; Family Provider Family Medicine; PCP Family Medicine
DX: S46.911A Strain of unspecified muscle, fascia and tendon at shoulder and upper arm level, right arm, initial encounter (principal)
CPT/HCPCS: 73030; 96372; 99283; J1170; J1885

== ENCOUNTER → 2020-09-19 14:08 | Outpatient (CLI) | payer OTHER, SELFPAY ==
[2020-09-19] MEDS: COVID-19 VACC, Ad26(JANSSEN)/PF 0.5 ML IM (14:23)
== END ==
PROVIDERS: Family Provider Family Medicine; PCP Family Medicine; Visit Provider Internal Medicine
DX: Z23 Encounter for immunization (principal)
CPT/HCPCS: 0031A; 91303

== ENCOUNTER → 2020-10-08 10:21 | Outpatient (CLI) | payer OTHER, SELFPAY ==
[2020-10-08 13:05] LABS: TSH w/ Reflex to FT4 1.79 uIU/mL (0.47-4.68)
== END ==
PROVIDERS: Family Provider Family Medicine; PCP Family Medicine; Referring Provider Family Medicine; Visit Provider Family Medicine
DX: F41.9 Anxiety disorder, unspecified (principal)
CPT/HCPCS: 36415; 84443

== ENCOUNTER → 2024-10-19 16:10 | Outpatient (CLI) | payer OTHER, SELFPAY ==
--- NOTE | 2024-10-19 16:12 | DI.MRI.S_ITS ---
PROCEDURE: MR PELVIS WO/W CON INDICATIONS: endometriosis TECHNIQUE: Coronal HASTE, sagittal breath-hold T2 FSE; axial T1 FSE with and without fat saturation through the pelvis. Optional long- and short-axis uterine nonbreath-hold T2 FSE through the uterus. Sagittal or axial dynamic VIBE during administration of contrast. Post-contrast axial or coronal VIBE/2-D FLASH with fat saturation from the iliac crests to the symphysis. Optional diffusion weighted imaging and ADC may be performed. COMPARISON: US, US PELVIC COMPLETE, 08/27/2020, 11:59. FINDINGS: Image quality: Excellent. Uterus: Uterus is anteflexed and normal in size. Endometrium is normal in thickness. Junctional zone is predominantly uniform in thickness at about 7 mm. There is an area of focal myometrial T2 hypointensity along the anterior midbody, possibly due to a myometrial fibroid. A 6 mm hypointensity is present in the left mid body, also probably a tiny fibroid. No ectopic T2 hyperintensities in the junctional zone or myometrium. No endometrial cysts. The cervix is normal. Vaginal canal is unremarkable. Adnexa: Both ovaries are normal size and contain numerous subcentimeter follicles no suspicious adnexal masses or cysts. Urinary system: Bladder wall is normal in thickness. Distal ureters are non distended. Urethra appears normal in morphology. Nodes and vessels: Vasculature is normal caliber. No suspicious adenopathy. Bowel and peritoneum: Visible bowel loops and rectum appear normal. No associated adhesions or tethering. No suspicious masses. Trace physiologic fluid in the cul-de-sac. Soft tissues: No inguinal hernias. No findings of pelvic floor incompetence in the absence of provocation. Bones: Marrow demonstrates normal overall signal. IMPRESSION: No MR evidence of endometriosis in the pelvis. A few small T2 hypointense areas in the myometrium are most likely fibroids. No MR findings to support adenomyosis in the uterus. Numerous bilateral ovarian follicles. This appearance can be physiologic. In the setting of hyperandrogenism, and with the appropriate clinical appearance, this could also be seen in polycystic ovarian syndrome. Recommend correlation with lab values. Dictated by: Yen Powell M.D. on 10/22/2024 at 10:36 Approved by: Yen Powell M.D. on 10/22/2024 at 11:06
== END ==
PROVIDERS: Family Provider Family Medicine; PCP Family Medicine; Referring Provider Obstetrics & Gynecology Gynecology; Visit Provider Obstetrics & Gynecology Gynecology
DX: N80.9 Endometriosis, unspecified (principal); N94.19 Other specified dyspareunia; R10.2 Pelvic and perineal pain; K59.00 Constipation, unspecified
CPT/HCPCS: 72197; A9579